=== PATIENT | female | born 1995 | race Caucasian/White ===

== ENCOUNTER 2018-08-06 02:55 | Emergency (ER) | payer BC, OTHER ==
[2018-08-06] MEDS ORDERED: Ketorolac 60 MG/2 ML SDV IM ONE (03:21)
--- NOTE | 2018-08-06 03:21 | EDM.PDOC ---
ED HPI GENERAL MEDICAL PROBLEM - General Stated Complaint: PAIN IN LEFT LEG; 25 WKS PREG Time Seen by Provider: 08/06/18 03:13 - History of Present Illness INITIAL COMMENTS - FREE TEXT/NARRATIVE: HISTORY AND PHYSICAL: History of present illness: The patient is a 22-year-old female who is a 1 para 0 at approximately 25 weeks gestation who follows at [facility] and has a history of left sciatica who manages it with wibg-nma-vjxnoms meds and sometimes sees a chiropractor and says that the pain exacerbated over the last few days and she did see a chiropractor 3 days ago who did not do any adjustments or work on her back. She presents tonight saying that the pain has intensified and she thinks is her sciatica but she's not complete sure. The patient has not had any trauma to her back or falls and she does have a history of factor V Leiden for which she is currently taking Lovenox. She has never had a blood clot which she is taking the Lovenox prophylactically due to her and her history. The patient indicates the area of the pain as behind her thigh on the left and it does not radiate to the anterior portion of the thigh or down her leg and there is no weakness in the leg. She says the pain is worse with certain movements especially extending her leg at the knee. She has no bowel or bladder disturbances and no other systemic complaints. She's had no vaginal bleeding no abdominal pain but she says the baby hasn't moved his much today Review of systems: As per history of present illness and below otherwise all systems reviewed and negative. Past medical history: As per history of present illness and as reviewed below otherwise noncontributory. Surgical history: As per history of present illness and as reviewed below otherwise noncontributory. Social history: No reported history of drug or alcohol abuse. Family history: As per history of present illness and as reviewed below otherwise noncontributory. Physical exam: General: Well-developed well-nourished mildly overweight female who is nontoxic and vital signs are noted by me HEENT: Atraumatic, normocephalic, negative for conjunctival pallor or scleral icterus, mucous membranes moist, throat clear, neck supple, nontender, trachea midline. Lungs: Clear to auscultation, breath sounds equal bilaterally, chest nontender. Heart: S1S2, regular rate and rhythm no overt murmurs Abdomen: Soft, nondistended, nontender. Gravid uterus Negative for masses or hepatosplenomegaly. Negative for costovertebral tenderness. Pelvis: Stable nontender. Genitourinary: Deferred. Rectal: Deferred. Extremities: Atraumatic, negative for cords or calf pain. Neurovascular unremarkable. On palpation of the hamstring complex there is some mild tenderness and when the patient extends at the knee she says the pain is worsened. There is no leg asymmetry no pedal edema no deep calf tenderness or popliteal fossa tenderness Neuro: Awake, alert, oriented. Cranial nerves II through XII unremarkable. Cerebellum unremarkable. Motor and sensory unremarkable throughout. Exam nonfocal. Dorsi and plantar flexion are intact 5/5 inclusive of the great toe as is inversion any version of the feet. Patellar reflexes are brisk at +2/4 Diagnostics: Labor and delivery to see and evaluate the Therapeutics: Toradol Case was discussed with Dr. Tse at 3:18 AM. She would like labor and delivery to come down and evaluate the and she would like me to give one dose of Toradol IM here and to center home on ibuprofen 600 mg every 8 hours for the next 24 hours and then she has to stop. She wants the patient to contact the clinic so that they get physical therapy set up. The patient is aware of this plan and discussion and she is comfortable with that Labor and delivery is here in the ED at 3:30 to evaluate the According to labor and delivery she is not exhibiting any signs of contractions and the baby looks good. Impression: Left hamstring pain/sciatica, 25 weeks stable Definitive disposition and diagnosis as appropriate pending reevaluation and review of above. Left Hip Pain Score (Numeric/FACES): 10 ED ROS GENERAL - Review of Systems Review Of Systems: ROS reveals no pertinent complaints other than HPI. ED EXAM, GENERAL - Physical Exam Exam: See Below (See dictation) Course - Vital Signs Last Recorded V/S: Last Vital Signs Temp 37.0 C 08/06/18 03:15 Pulse 89 08/06/18 03:15 Resp 16 08/06/18 03:15 BP 136/87 08/06/18 03:15 Pulse Ox 97 08/06/18 03:15 - Orders/Labs/Meds Meds: Medications Discontinued Medications Generic Name Dose Route Start Last Admin Trade Name Scott PRN Reason Stop Dose Admin Ketorolac Tromethamine 60 mg 08/06/18 03:21 Toradol IM 08/06/18 03:22 ONETIME ONE Departure - Departure Time of Disposition: 04:02 Disposition: Home, Self-Care 01 Condition: Good Clinical Impression: Sciatica, left side, Third trimester Left hamstring muscle strain Qualifiers: Encounter type: initial encounter Qualified Code(s): S76.312A - Strain of muscle, fascia and tendon of the posterior muscle group at thigh level, left thigh, initial encounter - Discharge Information Referrals: PCP,None [Primary Care Provider] - Additional Instructions: The following information is given to patients seen in the emergency department who are being discharged to home. This information is to outline your options for follow-up care. We provide all patients seen in our emergency department with a follow-up referral. The need for follow-up, as well as the timing and circumstances, are variable depending upon the specifics of your emergency department visit. If you don't have a primary care physician on staff, we will provide you with a referral. We always advise you to contact your personal physician following an emergency department visit to inform them of the circumstance of the visit and for follow-up with them and/or the need for any referrals to a consulting specialist. The emergency department will also refer you to a specialist when appropriate. This referral assures that you have the opportunity for followup care with a specialist. All of these measure are taken in an effort to provide you with optimal care, which includes your followup. Under all circumstances we always encourage you to contact your private physician who remains a resource for coordinating your care. When calling for followup care, please make the office aware that this follow-up is from your recent emergency room visit. If for any reason you are refused follow-up, please contact the [facility] emergency department at and ask to speak to the emergency department charge nurse. [facility] [address] [place] [address] [phone] Please contact the clinic on Wednesday morning so that they can work with you and schedule physical therapy and you may use ibuprofen/Motrin 600 mg every 8 hours for the next 24 hours and then you must stop. These are the directions given to you from Dr. Tse. Use ice or heat to area and try to stretch any elongate the area as this will help with the muscle spasm and pain. Return to ER as needed and as discussed.
== END 2018-08-06 04:55 | disposition home or self-care (01) ==
LOC: MW.ED 02:55
DX: O9A.212 Injury, poisoning and certain other consequences of external causes complicating pregnancy, second trimester (principal); S76.312A Strain of muscle, fascia and tendon of the posterior muscle group at thigh level, left thigh, initial encounter; Z3A.25 25 weeks gestation of pregnancy; M54.32 Sciatica, left side
CPT/HCPCS: 96372; 99283; J1885

== ENCOUNTER 2018-11-06 16:20 | Inpatient (IN) | payer BC ==
[2018-11-06] MEDS ORDERED: Sodium Chloride 0.9% 10 ML Syringe FLUSH PRN (17:19)
[2018-11-06] MEDS ORDERED: Sodium Chloride 0.9% 10 ML SDV IV PRN (17:19)
[2018-11-06] MEDS ORDERED: Methylergonovine 0.2 MG/1 ML Amp IM PRN (17:19)
[2018-11-06] MEDS ORDERED: Lidocaine 1% 50 ML MDV INJECT PRN (17:19)
[2018-11-06] MEDS ORDERED: Ondansetron 4 MG/2 ML SDV IV PRN (17:19)
[2018-11-06] MEDS ORDERED: Terbutaline 1 MG/ML SDV SUBCUT PRN (17:19)
[2018-11-06] MEDS ORDERED: Tranexamic Acid 1,000 MG in Sodium Chloride 0.9% 100 ML IV PRN (17:19)
[2018-11-06] MEDS ORDERED: Carboprost Tromethamine 250 MCG/1 ML Amp IM PRN (17:19)
[2018-11-06] MEDS ORDERED: Sodium Chloride 0.9% 2.5 ML Syringe FLUSH PRN (17:19)
[2018-11-06] MEDS ORDERED: Water For Irrigation,Sterile 1,000 ML Container IRR PRN (17:19)
[2018-11-06] MEDS ORDERED: Misoprostol 200 MCG Tab PO PRN (17:19)
[2018-11-06] MEDS ORDERED: Oxytocin/0.9 % Sodium Chloride 30 UNIT/500 ML BAG IV SCH ×2 (17:30)
[2018-11-06] MEDS ORDERED: Misoprostol 25 MCG (1/4 of 100 MCG) Tab VAG PRN ×2 (18:00→22:00)
[2018-11-06] MEDS ORDERED: hydrOXYzine Pamoate 25 MG Cap PO ONE (23:00)
[2018-11-07] MEDS: Butorphanol 1 MG/ML SDV IVPUSH PRN ×2 (03:09→04:44)
[2018-11-07] MEDS ORDERED: fentaNYL 100 MCG/2 ML SDV ONE (06:29)
[2018-11-07] MEDS ORDERED: Ropivacaine 0.2% 2 MG/ML 20 ML SDV ONE (06:29)
[2018-11-07] MEDS ORDERED: Ropivacaine HCl/PF 100 ML ONE (06:30)
[2018-11-07] MEDS: Lactated Ringers 1,000 ML IV SCH ×6 (06:45→16:50)
--- NOTE | 2018-11-07 07:17 | PCM.PREANE ---
Preanesthetic Assessment - Anesthesia/Transfusion/Family Hx Anesthesia History: Prior Anesthesia Without Reaction Family History of Anesthesia Reaction: No Transfusion History: No Prior Transfusion(s) - Review of Systems General: No Symptoms Pulmonary: No Symptoms Cardiovascular: No Symptoms Gastrointestinal: No Symptoms Neurological: No Symptoms Other: Reports: None (Inherited thrombophilia factor V. Patient stopped heparin over [address] Morley) - Physical Assessment Height: 1.63 m Weight: 104.326 kg ASA Class: 3 Mental Status: Alert & Oriented x3 Dentition: Reports: Normal Dentition ROM/Head Extension: Full - Lab Values: Laboratory Last Values WBC 14.80 K/uL (4.0-11.0) H 11/06/18 17:37 RBC 4.19 M/uL (4.30-5.90) L 11/06/18 17:37 Hgb 11.4 g/dL (12.0-16.0) L 11/06/18 17:37 Hct 35.6 % (36.0-46.0) L 11/06/18 17:37 MCV 85.0 fL (80.0-98.0) 11/06/18 17:37 MCH 27.2 pg (27.0-32.0) 11/06/18 17:37 MCHC 32.0 g/dL (31.0-37.0) 11/06/18 17:37 RDW Std Deviation 44.5 fl (28.0-62.0) 11/06/18 17:37 RDW Coeff of David 14 % (11.0-15.0) 11/06/18 17:37 Plt Count 357 K/uL (150-400) 11/06/18 17:37 MPV 11.50 fL (7.40-12.00) 11/06/18 17:37 Nucleated RBC % 0.0 /100WBC 11/06/18 17:37 Nucleated RBCs # 0 K/uL 11/06/18 17:37 Membrane Rupture POSITIVE 11/07/18 02:10 Blood Type A POSITIVE 11/06/18 17:37 Antibody Screen NEGATIVE 11/06/18 17:37 - Allergies Allergies/Adverse Reactions: Allergies Allergy/AdvReac Type Severity Reaction Status Date / Time Penicillins Allergy Hives Verified 11/06/18 17:16 - Acknowledgements Anesthesia Type Planned: Epidural Pt an Appropriate Candidate for the Planned Anesthesia: Yes Alternatives and Risks of Anesthesia Discussed w Pt/Guardian: Yes Pt/Guardian Understands and Agrees with Anesthesia Plan: Yes PreAnesthesia Questionnaire HEENT History: Reports: None Cardiovascular History: Reports: Blood Clots/VTE/DVT, Other (See Below) Other Cardiovascular History: Factor V Leiden and PT gene. 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 Immunologic History: Reports: None Oncologic (Cancer) History: Reports: None Dermatologic History: Reports: None - Infectious Disease History Infectious Disease History: Reports: None - Past Surgical History Head Surgeries/Procedures: Reports: None HEENT Surgical History: Reports: Myringotomy w Tube(s), Oral Surgery ([place] teeth) - SUBSTANCE USE Smoking Status *Q: Never Smoker Tobacco Use Within Last Twelve Months: No Second Hand Smoke Exposure: No Recreational Drug Use History: No - HOME MEDS Home Medications: Home Meds Heparin Sod,Porcine/0.9 % NaCl [Heparin 10,000 Unit/1,000Ml-Ns] 10,000 units SUBCUT DAILY 11/06/18 [History] Iiv847/FA/Omega3/Dha/Fish Oil [ Gummies] 1 each PO DAILY 11/06/18 [ History] - CURRENT (IN HOUSE) MEDS Current Meds: Current Medications Butorphanol Tartrate (Stadol) 1 mg IVPUSH Q1H PRN PRN Reason: Pain Last Admin: 11/07/18 04:44 Dose: 1 mg Carboprost Tromethamine (Hemabate Ds) 250 mcg IM ASDIRECTED PRN PRN Reason: Post Hemorrhage Lactated Ringer's (Ringers, Lactated) 1,000 mls @ 150 mls/hr IV ASDIRECTED MICHELLE Oxytocin/Sodium Chloride (Oxytocin 30 Unit/500 Ml-Ns) 30 unit in 500 mls @ 999 mls/hr IV TITRATE MICHELLE Oxytocin/Sodium Chloride (Oxytocin 30 Unit/500 Ml-Ns) 30 unit in 500 mls @ 2 mls/hr IV TITRATE MICHELLE; Protocol Tranexamic Acid 1,000 mg/ (Sodium Chloride) 110 mls @ 660 mls/hr IV ONETIME PRN PRN Reason: Bleeding Lidocaine HCl (Xylocaine 1%) 50 ml INJECT ONETIME PRN PRN Reason: Laceration repair Methylergonovine Maleate (Methergine) 0.2 mg IM ASDIRECTED PRN PRN Reason: Post Hemorrhage Misoprostol (Cytotec) 200 mcg PO ONETIME PRN PRN Reason: Post Hemorrhage Misoprostol (Cytotec) 25 mcg VAG ONETIME PRN PRN Reason: Cervical Ripening Last Admin: 11/06/18 17:59 Dose: 25 mcg Misoprostol (Cytotec) 25 mcg VAG Q4H PRN PRN Reason: Cervical Ripening Last Admin: 11/06/18 21:52 Dose: 25 mcg Ondansetron HCl (Zofran) 4 mg IV Q6H PRN PRN Reason: Nausea/Vomiting Sodium Chloride (Saline Flush) 10 ml FLUSH ASDIRECTED PRN PRN Reason: Keep Vein Open Sodium Chloride (Saline Flush) 2.5 ml FLUSH ASDIRECTED PRN PRN Reason: Keep Vein Open Sodium Chloride (Normal Saline) 10 ml IV ASDIRECTED PRN PRN Reason: IV Use Sterile Water (Sterile Water For Irrigation) 1,000 ml IRR ASDIRECTED PRN PRN Reason: delivery Terbutaline Sulfate (Brethine) 0.25 mg SUBCUT ASDIRECTED PRN PRN Reason: Tacysystole Discontinued Medications Fentanyl (Sublimaze) Confirm Administered Dose 300 mcg .ROUTE .STK-MED ONE Stop: 11/07/18 06:30 Hydroxyzine Pamoate (Vistaril) 50 mg PO ONETIME ONE Stop: 11/06/18 23:01 Last Admin: 11/06/18 23:36 Dose: 50 mg Ropivacaine (Naropin 0.2%) Confirm Administered Dose 100 mls @ as directed .ROUTE .STK-MED ONE Stop: 11/07/18 06:31 Ropivacaine (Naropin 0.2%) Confirm Administered Dose 20 ml .ROUTE .STK-MED ONE Stop: 11/07/18 06:30
[2018-11-07] MEDS ORDERED: Acetaminophen 500 MG Tab PO PRN ×2 (16:50)
[2018-11-07] MEDS ORDERED: Bisacodyl 10 MG Supp RECTAL PRN (16:50)
[2018-11-07] MEDS ORDERED: Aluminum Hydroxide/Magnesium Hydroxide/Simethicone Susp 30 ML Cup PO PRN (16:50)
[2018-11-07] MEDS ORDERED: Ibuprofen 400 MG Tab PO PRN (16:50)
[2018-11-07] MEDS ORDERED: oxyCODONE 5 MG Tab PO PRN (16:50)
[2018-11-07] MEDS ORDERED: Lanolin 100% Cream 7 GM Tube TOP PRN (16:50)
--- NOTE | 2018-11-07 17:01 | PCM.OPNOTE ---
- General Post-Op/Procedure Note Date of Surgery/Procedure: 11/07/18 Operative Procedure(s): /2nd MLL repaired Findings: Viable male APGARs 8, 9 weight 3100 gm. Spontaneous delivery intact placenta with 3V cord Pre Op Diagnosis: 39/2 week IUP. Inherited thrombophilia Post-Op Diagnosis: Same Anesthesia Technique: Epidural Primary Surgeon: Ignacia Lara EBL in mLs: 350 Complications: none known Condition: Good Free Text/Narrative:: Dictation [id number]
[2018-11-07] MEDS: Witch Hazel Medicated Pads 40/Jar TOP PRN (18:24)
[2018-11-07] MEDS: Ibuprofen 800 MG Tab PO PRN (18:24)
[2018-11-07] MEDS: Benzocaine/Menthol 20%-0.5% Spray 78 GM Cannister TOP PRN (18:25)
--- NOTE | 2018-11-07 23:39 | OR ---
SURGEON: Ignacia Lara M.D. DATE OF PROCEDURE: 11/07/2018 PREOPERATIVE DIAGNOSES: 1. 39 and 2/7 weeks' intrauterine . 2. Inherited thrombophilia, induction of labor. POSTOPERATIVE DIAGNOSES: 1. 39 and 2/7 weeks' intrauterine . 2. Inherited thrombophilia, induction of labor. PROCEDURES: Spontaneous vaginal delivery, second-degree midline laceration repair. PRIMARY SURGEON: Ignacia Lara MD. ANESTHESIA: Epidural. ESTIMATED BLOOD LOSS: 350 mL. COMPLICATIONS: None known. FINDINGS: Viable male, Apgars 8 at 1 minute and 9 at 5 minutes. Weight is 3100 g. Spontaneous delivery, intact placenta, 3-vessel cord. DISPOSITION: in LDRP with mother with attending nursing staff at their side, stable. PROCEDURE IN DETAIL: Cassandra is a 23-year-old G1, P0 at 39 and 2/7 weeks' gestational age who was admitted on the evening of 11/06/2018 for scheduled induction of labor due to inherited thrombophilia. She has been on prophylactic Lovenox this , switched to heparin at 37 weeks gestational age and has had her last dose on the morning of 11/06/2018. The patient was admitted. Routine labs were drawn, underwent Cytotec dosing, responded nicely to this. She had spontaneous rupture of membranes shortly after 2 a.m., and then by the following morning was found to be 3 cm, 90% effaced, -2 station, was increasingly uncomfortable and requesting an epidural. She underwent this satisfactorily, became more comfortable. Then began Pitocin augmentation, responded nicely to this. Had a few episodes of variable decelerations that resolved with positional changes and decreasing Pitocin. She only needed to be maintained on 2 milliunits of Pitocin and progressed nicely throughout the early afternoon hours. Shortly after 3:42 p.m., she was found to be complete, 100% effaced at 0 station, began pushing efforts, pushed readily for little over 2 hours, and at that time was called for delivery. Patient was placed in modified dorsal lithotomy position, was prepped and draped in the usual aseptic manner, was at +3 station. At this juncture, continuing with pushing efforts was able to push and deliver 's head atraumatically spontaneously, followed by anterior shoulder, posterior shoulder, and remaining body without difficulty. There was a loose nuchal cord x1 reduced manually. The 's oropharynx and nares bulb suctioned. The infant was handed off to his mother with attending nursing staff at the side. After a delay, the cord was clamped x2 and cut. Cord arterial, cord venous, cord blood sampling were obtained. Light pressure was applied while the placenta was delivered spontaneously intact. Vigorous fundal uterine massage was then applied while 30 units of Pitocin delivered in 500 mL IV fluid. Upon inspection of cervix, vaginal sidewalls, and perineum, there was found to be a second-degree midline laceration that was a deeper one that was repaired with a deeper layer of three [id number] sutures with 3-0 Vicryl, followed by remainder of the usual closure of the second-degree laceration. Hemostasis remained evident. Sponge, instrument, needle count was correct. The patient remained in LDRP, infant in nursery. RACHEL / BOUCHRA /[id number]
[2018-11-08] MEDS: Ibuprofen 800 MG Tab PO PRN ×2 (00:31→08:47)
[2018-11-08] MEDS: Docusate Sodium 100 MG Cap PO PRN ×2 (00:34→08:47)
[2018-11-08] MEDS ORDERED: Enoxaparin 40 MG/0.4 ML Syringe SUBCUT SCH (08:00)
--- NOTE | 2018-11-08 08:41 | PCM.PNPP ---
- General Info Date of Service: 11/08/18 Functional Status: Reports: Pain Controlled, Tolerating Diet, Ambulating, Urinating - Review of Systems General: Denies: Fever, Weakness Pulmonary: Denies: Shortness of Breath Cardiovascular: Denies: Chest Pain, Palpitations, Lightheadedness Gastrointestinal: Denies: Abdominal Pain, Nausea, Vomiting Genitourinary: Denies: Flank Pain Musculoskeletal: Reports: No Symptoms Skin: Reports: No Symptoms Neurological: Reports: No Symptoms Psychiatric: Reports: No Symptoms - General Info Date of Service: 11/08/18 - Patient Data Vital Signs - Most Recent: Last Vital Signs Temp 36.2 C 11/08/18 07:25 Pulse 85 11/08/18 07:25 Resp 17 11/08/18 07:25 BP 115/60 11/08/18 07:25 Pulse Ox 97 11/08/18 07:25 Weight - Most Recent: 104.326 kg Lab Results - Last 24 Hours: Laboratory Results - last 24 hr 11/07/18 11/08/18 Range/Units 16:20 04:45 Hgb 9.5 L (12.0-16.0) g/dL Hct 30.8 L (36.0-46.0) % Cord ABG pH 7.225 (7.18-7.38) Cord ABG Base Excess -6 (-10--2) Cord VBG pH 7.285 (7.25-7.45) Cord VBG Base Excess -8 (-10--2) Med Orders - Current: Current Medications Acetaminophen (Tylenol Extra Strength) 500 mg PO Q4H PRN PRN Reason: Pain Acetaminophen (Tylenol Extra Strength) 1,000 mg PO Q4H PRN PRN Reason: Pain Al Hydroxide/Mg Hydroxide (Mag-Al Plus) 30 ml PO Q8H PRN PRN Reason: Heartburn Benzocaine/Menthol (Dermoplast Pain Relief 20%-0.5% [place]) 78 gm TOP ASDIRECTED PRN PRN Reason: Perineal Comfort Measure Last Admin: 11/07/18 18:25 Dose: 1 spray Bisacodyl (Dulcolax) 10 mg RECTAL ONETIME PRN PRN Reason: Constipation Carboprost Tromethamine (Hemabate Ds) 250 mcg IM ASDIRECTED PRN PRN Reason: Post Hemorrhage Docusate Sodium (Colace) 100 mg PO BID PRN PRN Reason: Constipation Last Admin: 11/08/18 00:34 Dose: 100 mg Emollient Ointment (Lansinoh Hpa) 0 gm TOP ASDIRECTED PRN PRN Reason: Sore Nipples Last Admin: 11/08/18 01:06 Dose: 7 gm Enoxaparin Sodium (Lovenox) 40 mg SUBCUT Q24H MICHELLE Lactated Ringer's (Ringers, Lactated) 1,000 mls @ 150 mls/hr IV ASDIRECTED MICHELLE Last Admin: 11/07/18 16:50 Dose: 150 mls/hr Oxytocin/Sodium Chloride (Oxytocin 30 Unit/500 Ml-Ns) 30 unit in 500 mls @ 999 mls/hr IV TITRATE MICHELLE Oxytocin/Sodium Chloride (Oxytocin 30 Unit/500 Ml-Ns) 30 unit in 500 mls @ 2 mls/hr IV TITRATE MICHELLE; Protocol Last Titration: 11/07/18 11:28 Dose: 2 munits/min, 2 mls/hr Tranexamic Acid 1,000 mg/ (Sodium Chloride) 110 mls @ 660 mls/hr IV ONETIME PRN PRN Reason: Bleeding Ibuprofen (Motrin) 400 mg PO Q4H PRN PRN Reason: Pain Ibuprofen (Motrin) 800 mg PO Q6H PRN PRN Reason: Pain Last Admin: 11/08/18 00:31 Dose: 800 mg Methylergonovine Maleate (Methergine) 0.2 mg IM ASDIRECTED PRN PRN Reason: Post Hemorrhage Ondansetron HCl (Zofran) 4 mg IV Q6H PRN PRN Reason: Nausea/Vomiting Oxycodone HCl (Oxycodone) 5 mg PO Q2H PRN PRN Reason: Pain Sodium Chloride (Saline Flush) 10 ml FLUSH ASDIRECTED PRN PRN Reason: Keep Vein Open Sodium Chloride (Saline Flush) 2.5 ml FLUSH ASDIRECTED PRN PRN Reason: Keep Vein Open Sodium Chloride (Normal Saline) 10 ml IV ASDIRECTED PRN PRN Reason: IV Use Sterile Water (Sterile Water For Irrigation) 1,000 ml IRR ASDIRECTED PRN PRN Reason: delivery Last Admin: 11/07/18 16:51 Dose: 1,000 ml Witch Crystal (Tucks) 1 pad TOP ASDIRECTED PRN PRN Reason: comfort care Last Admin: 11/07/18 18:24 Dose: 1 pad Discontinued Medications Butorphanol Tartrate (Stadol) 1 mg IVPUSH Q1H PRN PRN Reason: Pain Last Admin: 11/07/18 04:44 Dose: 1 mg Fentanyl (Sublimaze) Confirm Administered Dose 300 mcg .ROUTE .STK-MED ONE Stop: 11/07/18 06:30 Last Admin: 11/07/18 21:09 Dose: Not Given Hydroxyzine Pamoate (Vistaril) 50 mg PO ONETIME ONE Stop: 11/06/18 23:01 Last Admin: 11/06/18 23:36 Dose: 50 mg Ropivacaine (Naropin 0.2%) Confirm Administered Dose 100 mls @ as directed .ROUTE .STK-MED ONE Stop: 11/07/18 06:31 Last Admin: 11/07/18 21:09 Dose: Not Given Lidocaine HCl (Xylocaine 1%) 50 ml INJECT ONETIME PRN PRN Reason: Laceration repair Misoprostol (Cytotec) 200 mcg PO ONETIME PRN PRN Reason: Post Hemorrhage Misoprostol (Cytotec) 25 mcg VAG ONETIME PRN PRN Reason: Cervical Ripening Last Admin: 11/06/18 17:59 Dose: 25 mcg Misoprostol (Cytotec) 25 mcg VAG Q4H PRN PRN Reason: Cervical Ripening Last Admin: 11/06/18 21:52 Dose: 25 mcg Ropivacaine (Naropin 0.2%) Confirm Administered Dose 20 ml .ROUTE .STK-MED ONE Stop: 11/07/18 06:30 Last Admin: 11/07/18 21:09 Dose: Not Given Terbutaline Sulfate (Brethine) 0.25 mg SUBCUT ASDIRECTED PRN PRN Reason: Tacysystole - Infant Interaction Disposition, : in Room with Family Support Person: - Recovery Exam Fundal Tone: Firm Fundal Level: 1 Fingerbreadths Below Umbilicus Fundal Placement: Midline Lochia Amount: Scant Lochia Color: Rubra/Red Perineum Description: Other (see below) Other Perinuem Description: 2nd degree laceration Episiotomy/Laceration: Approximated Bladder Status: Voiding Urinary Elimination: Voided - Exam General: Alert, Oriented Lungs: Normal Respiratory Effort Cardiovascular: Regular Rate, Regular Rhythm GI/Abdominal Exam: Normal Bowel Sounds, Soft Extremities: Pedal Edema (trace). No: Alanna's Sign Skin: Warm, Dry, Intact Neurological: No New Focal Deficit Psy/Mental Status: Alert, Normal Affect, Normal Mood - Problem List & Annotations (1) Vaginal delivery SNOMED Code(s): 150000344 Code(s): O80 - ENCOUNTER FOR FULL-TERM UNCOMPLICATED DELIVERY Status: Acute Current Visit: Yes - Problem List Review Problem List Initiated/Reviewed/Updated: Yes - My Orders Last 24 Hours: My Active Orders 11/07/18 16:50 Patient Status [ADT] Routine May Shower [RC] ASDIRECTED Up ad Denise [RC] ASDIRECTED Vital Signs [RC] PER UNIT ROUTINE Acetaminophen [Tylenol Extra Strength] 1,000 mg PO Q4H PRN Acetaminophen [Tylenol Extra Strength] 500 mg PO Q4H PRN Alum Hydrox/Mag Hydrox/Simeth [Mag-Al Plus] 30 ml PO Q8H PRN Benzocaine/Menthol [Dermoplast Pain Relief 20%-0.5% [place]] 78 gm TOP ASDIRECTED PRN Bisacodyl [Dulcolax] 10 mg RECTAL ONETIME PRN Docusate Sodium [Colace] 100 mg PO BID PRN Ibuprofen [Motrin] 400 mg PO Q4H PRN Ibuprofen [Motrin] 800 mg PO Q6H PRN Lanolin [Lansinoh HPA] See Dose Instructions TOP ASDIRECTED PRN Witch Crystal [Tucks] 1 pad TOP ASDIRECTED PRN oxyCODONE 5 mg PO Q2H PRN Assess Lochia [WOMSER] Per Unit Routine Assess Uterine Involution [WOMSER] Per Unit Routine Peripheral IV Discontinue [OM.PC] Routine 11/07/18 16:51 Ice Therapy [OM.PC] Per Unit Routine Perineal Care [OM.PC] Per Unit Routine Sitz Bath [OM.PC] Per Unit Routine 11/07/18 Dinner Regular Diet [DIET] 11/08/18 08:00 Enoxaparin [Lovenox] 40 mg SUBCUT Q24H 11/08/18 08:39 Ready for Discharge [RC] PER UNIT ROUTINE - Assessment Assessment:: PPD 1 status post /2nd MLL repaired Inherited thrombophilia - Plan Plan:: Doing well overall, going well. Patient would like to go home later today. VS and labs are reassuring. Discharge instructions reviewed, follow up at [facility] 6 weeks. Infection and bleeding warnings reviewed. Resume lovenox prophylactically for 6 weeks. Discharge to home today.
--- NOTE | 2018-11-08 10:26 | PCM48HPAN ---
Post Anesthesia Note - EVALUATION WITHIN 48HRS OF ANESTHETIC Vital Signs in Normal Range: Yes Patient Participated in Evaluation: Yes Respiratory Function Stable: Yes Airway Patent: Yes Cardiovascular Function Stable: Yes Hydration Status Stable: Yes Pain Control Satisfactory: Yes Nausea and Vomiting Control Satisfactory: Yes Mental Status Recovered: Yes Resp Rate: 17
[2018-11-08] MEDS ORDERED: Measles, Mumps & Rubella Vaccine 0.5 ML SDV SUBCUT ONE (16:00)
[2018-11-08] MEDS: Benzocaine/Menthol 20%-0.5% Spray 78 GM Cannister TOP PRN (17:12)
[2018-11-08] MEDS: Witch Hazel Medicated Pads 40/Jar TOP PRN (17:12)
== END 2018-11-08 18:45 | disposition home or self-care (01) | DRG 560 ==
LOC: MW.OB 16:20 → OBSVTOIN 11-07 16:20 → MW.OB 11-07 20:12
PROVIDERS: ADMIT Obstetrics & Gynecology; ATTEND Obstetrics & Gynecology
PROC: 10E0XZZ Delivery of Products of Conception, External Approach (ICD-10-PCS; principal; 2018-11-07)
PROC: 3E0P7VZ Introduction of Hormone into Female Reproductive, Via Natural or Artificial Opening (ICD-10-PCS; 2018-11-07)
PROC: 4A1HXCZ Monitoring of Products of Conception, Cardiac Rate, External Approach (ICD-10-PCS; 2018-11-07)
PROC: 0KQM0ZZ Repair Perineum Muscle, Open Approach (ICD-10-PCS; 2018-11-07)
DX: O99.12 Other diseases of the blood and blood-forming organs and certain disorders involving the immune mechanism complicating childbirth (principal); D68.52 Prothrombin gene mutation; D68.2 Hereditary deficiency of other clotting factors; O70.1 Second degree perineal laceration during delivery; D68.51 Activated protein C resistance; O69.81X0 Labor and delivery complicated by cord around neck, without compression, not applicable or unspecified; Z3A.39 39 weeks gestation of pregnancy; Z37.0 Single live birth
CPT/HCPCS: 01967; 36415; 51702; 59025; 59409; 82803; 84112; 85014; 85018; 85027; 86850; 86900; 86901; 90471; 90707; A9270-GY; J0595; J1650; J2590; J7120